=== PATIENT | female | born 1955 | race Caucasian/White ===

== ENCOUNTER 2018-08-06 05:42 | Day surgery (SDC) | payer OTHER ==
[2018-08-06] MEDS ORDERED: Tropicamide 0.5% Opht Sol OD SCH (06:00)
[2018-08-06] MEDS ORDERED: acetaZOLAMIDE 500 mg SR Cap PO ONE (06:00)
[2018-08-06] MEDS ORDERED: Lactated Ringer's 500 ML IV ONE (06:00)
[2018-08-06] MEDS ORDERED: Ketorolac Tromethamine 0.5% Opth Soln (3 ml) OD SCH (06:00)
[2018-08-06] MEDS ORDERED: Ciprofloxacin 0.3% OPTH SOLN OD SCH (06:00)
[2018-08-06] MEDS ORDERED: Phenylephrine 2.5% Opht Soln OD SCH (06:00)
[2018-08-06] MEDS ORDERED: Lactated Ringer's 1,000 ML IV ONE (06:26)
[2018-08-06] MEDS ORDERED: Chondroitin/Hyaluronate Opth Syringe KIT (0.55 ml-0.5 ml) IO ONE (07:24)
[2018-08-06] MEDS ORDERED: Povidone Iodine Ophthalmic 5% Soln ONE (07:24)
[2018-08-06] MEDS ORDERED: Tetracaine 0.5% Ophth (OR ONLY) ONE (07:24)
[2018-08-06] MEDS ORDERED: Carbachol 0.01% IO ONE ×2 (07:24→07:25)
[2018-08-06] MEDS ORDERED: Tobramycin/Dexamethasone OPHT OINT ONE (07:36)
[2018-08-06] MEDS ORDERED: Lidocaine 2% MPF (5 ml) Inj ONE ×2 (07:42→07:46)
[2018-08-06] MEDS ORDERED: Chondroitin/Hyaluronate 40 mg/ml-30 mg/ml Ophth Syringe (0.5 ml) IO ONE (07:46)
[2018-08-06] MEDS ORDERED: Midazolam 2 MG/2 ML VIAL ONE (07:58)
[2018-08-06] MEDS ORDERED: Hyaluronidase Human, Recombi 150 U/ML VIAL ONE (08:01)
[2018-08-06 11:51] VITALS: BP 109/60; PULSE 71; RESP 17; TEMP 97.9; O2SAT 97
--- NOTE | 2018-08-06 22:25 | OP ---
PROCEDURE DATE: 08/06/2018 PREOPERATIVE DIAGNOSIS: Matured cataract, right eye. POSTOPERATIVE DIAGNOSIS: Matured cataract, right eye. PROCEDURE: Phacoemulsification, right eye, insertion of posterior chamber lens implant. SURGEON: Mrak Martinez MD CO-SURGEON: Dewey Pat MD DESCRIPTION OF PROCEDURE: The patient was brought into the operating room, placed in supine position, prepped and draped in the usual fashion for ophthalmic surgery. Lid speculum was inserted, lids and exposing globe. A side-port incision was made superiorly and inferiorly with a disposable sharp blade. Anterior chamber was filled with Viscoat. A near clear corneal incision was made temporally with a 2.75-mm keratome. Capsulorrhexis was then performed with Utrata forceps. Hydrodissection carried out with balanced salt solution. Nucleus was phacoemulsified. Remaining cortical fragments were removed with a split irrigation and aspiration system. The capsular sac was filled with Provisc. A posterior chamber lens was then injected into the capsular sac and rotated into horizontal position. Provisc was aspirated out of the anterior chamber. The pupil was constricted with Miochol. The wound was found to be watertight. Topical Betadine, Timoptic, and TobraDex ointment and pressure patch were applied. The patient tolerated the procedure well. Mark Martinez MD
== END 2018-08-06 09:54 | disposition home or self-care (01) ==
LOC: C.SDS 05:42
PROVIDERS: ATTEND Ophthalmology
DX: H25.11 Age-related nuclear cataract, right eye (principal)
CPT/HCPCS: 66984; 82948; J2250; J3010; J3470; J7120; V2632

== ENCOUNTER 2018-09-03 06:35 | Day surgery (SDC) | payer OTHER ==
[~2018-09-03 06:35] MED LIST: Ciprofloxacin 0.3% OPTH SOLN OS SCH; Ketorolac Tromethamine 0.5% Opth Soln (3 ml) OS SCH; Lactated Ringer's 500 ML IV ONE; Phenylephrine 2.5% Opht Soln OS SCH; Tropicamide 0.5% Opht Sol OS SCH; acetaZOLAMIDE 500 mg SR Cap PO ONE
[2018-09-03] MEDS ORDERED: Carbachol 0.01% IO ONE (07:25)
[2018-09-03] MEDS ORDERED: Povidone Iodine Ophthalmic 5% Soln ONE (07:25)
[2018-09-03] MEDS ORDERED: Tobramycin/Dexamethasone OPHT OINT ONE (07:26)
[2018-09-03] MEDS ORDERED: Tetracaine 0.5% Ophth (OR ONLY) ONE (07:26)
[2018-09-03] MEDS ORDERED: Hyaluronidase Human, Recombi 150 U/ML VIAL ONE (07:27)
[2018-09-03] MEDS ORDERED: Chondroitin/Hyaluronate Opth Syringe KIT (0.55 ml-0.5 ml) IO ONE (07:27)
[2018-09-03] MEDS ORDERED: Tobramycin/Dexamethasone (Tobradex) Opth Sol (2.5 ml) ONE (07:33)
[2018-09-03] MEDS ORDERED: Lactated Ringer's 500 ML IV ONE ×3 (07:33→08:44)
[2018-09-03] MEDS ORDERED: Lidocaine 2% MPF (5 ml) Inj ONE (07:37)
[2018-09-03] MEDS ORDERED: Midazolam 2 MG/2 ML VIAL ONE (08:07)
[2018-09-03] MEDS ORDERED: Chondroitin/Hyaluronate 40 mg/ml-30 mg/ml Ophth Syringe (0.5 ml) IO ONE (08:29)
[2018-09-03] MEDS ORDERED: acetaZOLAMIDE 500 mg SR Cap PO ONE (08:52)
[2018-09-03 09:06] VITALS: RESP 20
[2018-09-03 09:45] VITALS: BP 108/61; PULSE 82; TEMP 97.8; O2SAT 97
--- NOTE | 2018-09-03 21:52 | OP ---
PROCEDURE DATE: 09/03/2018 PREOPERATIVE DIAGNOSIS: Matured cataract, left eye. POSTOPERATIVE DIAGNOSIS: Matured cataract, left eye. PROCEDURE: Phacoemulsification, left eye and insertion of posterior chamber lens implant. SURGEON: Mark Martinez MD CO-SURGEON: Dewey Pat MD ANESTHESIA: Local with IV sedation. PROCEDURE: The patient was brought into the operating room, placed in supine position, prepped and draped in the usual fashion for ophthalmic surgery. Lid speculum was inserted, lids and exposing globe. A side-port incision was made superiorly and inferiorly with a disposable sharp blade. Anterior chamber was filled with Viscoat. A near clear corneal incision was made temporally with a 2.75-mm keratome. Capsulorrhexis was then performed with Utrata forceps. Hydrodissection carried out with balanced salt solution. Nucleus was phacoemulsified. Remaining cortical fragments were removed with a split irrigation and aspiration system. The capsular sac was filled with Provisc. A posterior chamber lens was then injected into the capsular sac and rotated into horizontal position. Provisc was aspirated out of the anterior chamber. The pupil was constricted with Miochol. The wound was found to be watertight. Topical Betadine, Timoptic, and TobraDex ointment and pressure patch were applied. The patient tolerated the procedure well. Mark Martinez MD
== END 2018-09-03 09:40 | disposition home or self-care (01) ==
LOC: C.SDS 06:35
PROVIDERS: ATTEND Ophthalmology
DX: H25.12 Age-related nuclear cataract, left eye (principal); E11.9 Type 2 diabetes mellitus without complications; E78.5 Hyperlipidemia, unspecified
CPT/HCPCS: 66984; 82948; J2250; J3010; J3470; J7120; V2632